=== PATIENT | female | born 1950 | race Caucasian/White ===

== ENCOUNTER 2021-09-05 12:07 | Emergency (ER) | payer MEDICARE, OTHER ==
[~2021-09-05] VITALS: Ht 152.4 cm; Wt 77.1 kg
[~2021-09-05 12:07] MED LIST: HYDROCHLOROTHIA25 M1; IBUPROFEN 200200 M1 PO; NORCO 5-325 TA1 EACH PO; TOPROL XL25 MG; XANAX 0.5 MG0.5 M1 PO
[2021-09-05] MEDS ORDERED: LIPITOR10 MG PO (12:20)
[2021-09-05 13:09] LABS: URINE BILIRUBIN NEGATIVE (Negative); URINE BLOOD NEGATIVE (Negative); URINE CLARITY CLEAR; URINE COLOR YELLOW; URINE GLUCOSE-RANDOM NEGATIVE (Negative); URINE KETONES NEGATIVE (Negative); URINE LEUKOCYTES-REFLEX TRACE (Negative); URINE NITRITE-REFLEX NEGATIVE (Negative); URINE PROTEIN NEGATIVE (Negative); URINE SPECIFIC GRAVITY 1.025 (1.005-1.030); URINE UROBILINOGEN 0.2 E.U./dl (0.2-1.0)
[2021-09-05 13:33] LABS: BACTERIA-REFLEX None Seen /HPF (None Seen); MUCUS 0-3 Light strn/LPF (None Seen); SQUAMOUS 0-3 Few /LPF (0-3); URINE RBC 0-2 Rare /HPF (0-2); URINE WBC-REFLEX 0-5 Rare /HPF (0-5)
[2021-09-05 13:34] LABS: CASTS None Seen /LPF (None Seen); CRYSTALS None Seen /LPF (None Seen)
[2021-09-05] MEDS ORDERED: FLEXERIL PO (13:39)
[2021-09-05] MEDS ORDERED: HYDROCODON-ACE1 EAC7 PO (13:39)
[2021-09-05 13:48] VITALS: BP 141/60
== END 2021-09-05 13:48 | disposition home or self-care (01) ==
LOC: M.ERS 12:07
PROVIDERS: Family Medicine
DX: M54.50 Low back pain, unspecified (principal); I10 Essential (primary) hypertension; E11.9 Type 2 diabetes mellitus without complications; Z79.899 Other long term (current) drug therapy; X50.1XXA Overexertion from prolonged static or awkward postures, initial encounter; Y93.89 Activity, other specified; Y92.89 Other specified places as the place of occurrence of the external cause; Y99.8 Other external cause status